=== PATIENT | female | born 1995 ===

== ENCOUNTER 2017-09-05 11:17 | Emergency (ER) | payer BC ==
[2017-09-05] MEDS ORDERED: Ondansetron HCl/PF 4 MG/2 ML Vial ONE (11:48)
[2017-09-05] MEDS ORDERED: Meclizine HCl 25 MG TAB ONE (12:12)
[2017-09-05 12:31] LABS: ALT (SGPT) 19 U/L (8-55); AST (SGOT) 18 U/L (5-34); Albumin 4.8 g/dL (3.5-5.0); Alkaline Phosphatase 107 U/L (40-150); Anion Gap 15 mmol/L (10-20); BUN (Urea Nitrogen) 10 mg/dL (7.0-18.7); Bilirubin, Total 0.6 mg/dL (0.2-1.2); Calc. Creatinine Clearance 0 mL/min (70-130); Calcium 9.4 mg/dL (7.8-10.44); Carbon Dioxide 22 mmol/L (22-29); Estimated GFR-MDRD Greater than 90; Glucose 116 mg/dL (70-105); Lipase 13 U/L (8-78); Potassium 3.9 mmol/L (3.5-5.1); Protein, Total 8.8 g/dL (6.0-8.3)
[2017-09-05 12:33] LABS: #Basophils 0.1 thou/uL (0.0-0.2); #Eosinphils 0.1 thou/uL (0.0-0.7); #Lymphocytes 1.4 thou/uL (1.20-3.40); #Monocytes 0.4 thou/uL (0.11-0.59); %Basophils 0.7 % (0.0-1.0); %Lymphocytes 14.1 % (21.0-51.0); %Monocytes 3.6 % (0.0-10.0); %Neutrophils 80.6 % (42.0-75.0); Hemoglobin 11.9 g/dL (12.0-16.0); Hypochromia SLIGHT = 6-15 cells (100X) (0-5/hpf); MDiff Complete? YES; Mean Corpuscular Hemoglobin 19.3 pg (27.0-31.0); Mean Corpuscular Volume 62.4 fl (81.0-99.0); Mean Platelet Volume 9.7 fL (7.4-10.4); Microcytosis SLIGHT = 6-15 cells (100X) (0-5/hpf); Ovalocytes SLIGHT = 2-5 cells (100X) (0-1/hpf); PLT Morphology Comment Appears Adequate; Platelet Count 251 thou/uL (130-400); RBC Distribution Width 14.2 % (11.5-14.5); Red Blood Cell (RBC) Count 6.15 mill/uL (4.20-5.40); White Blood Cell (WBC) Count 9.9 thou/uL (4.8-10.8)
[2017-09-05 12:35] LABS: Chloride 106 mmol/L (98-107); Sodium 139 mmol/L (136-145)
[2017-09-05 13:21] LABS: Bilirubin Negative (Negative); Blood, Urine Large (Negative); Clarity Hazy (Clear); Glucose, Urine (Dipstick) Negative (Negative); Leukocyte Negative (Negative); Nitrite Negative (Negative); Protein, Urine (Dipstick) 100 mg/dL (Neg-Trace); Specific Gravity, Urine 1.025 (1.005-1.030); Urobilinogen 0.2 mg/dL (0.2-1.0)
[2017-09-05 13:22] LABS: Pregnancy Test - Urine (BHCG) Negative (Negative); Pregu Control Background? CLEAR/WHITE (CLR/WHITE); Pregu Control Bar Appear? YES (CONTROL BAR); Specific Gravity 1.025 (1.002-1.036)
[2017-09-05 13:25] LABS: Bacteria/HPF Rare-Few HPF (None Seen); RBC/HPF 21-50 HPF (0-3); WBC/HPF None Seen HPF (0-3)
== END 2017-09-05 14:20 | disposition home or self-care (01) ==
LOC: SCSER 11:17
DX: R19.7 Diarrhea, unspecified (principal); R11.2 Nausea with vomiting, unspecified; G47.00 Insomnia, unspecified; H55.00 Unspecified nystagmus; D64.9 Anemia, unspecified
CPT/HCPCS: 80053; 81003; 81015; 81025; 83690; 85025; 96361; 96374; J2405